=== PATIENT | male | born 1930 | race Caucasian/White ===

== ENCOUNTER 2016-07-25 04:04 | Day surgery (SDC) | payer MEDICARE, OTHER ==
[2016-07-19 13:31] LABS: HEMATOCRIT 38.6 % (40.0-51.0); HEMOGLOBIN 12.5 g/dL (13.6-17.8)
[2016-07-19 13:45] LABS: BUN (BLOOD UREA NITROGEN) 17 MG/DL (6-23); CALCIUM, SERUM 8.7 MG/DL (8.5-10.4); CHLORIDE, SERUM 109 MMOL/L (96-112); CO2 (CARBON DIOXIDE) 27 MMOL/L (24-34); CREATININE 1.59 MG/DL (0.70-1.30); GFR AFRICAN AMERICAN 45 ML/MIN (>=60); GFR NON AFRICAN AMERICAN 39 ML/MIN (>=60); GLUCOSE, SERUM 89 MG/DL (60-99); POTASSIUM, SERUM 4.4 MMOL/L (3.5-5.3); SODIUM, SERUM 144 MMOL/L (135-148)
--- NOTE | ~2016-07-25 | OP ---
Record Of Operation [facility] [address] [place]. [address] NAME: DAKOTA EDGAR : 32 STATUS : [facility]#: [id number] AGE: 86 ADM/REG DATE : 07/25/16 MR#: [id number] REPORT SERV DATE: 07/25/16 DICTATED BY: ARIADNE WHATLEY DATE: 07/25/16 REPORT STATUS : Draft TRANSCRIBED BY: MODL DATE: 07/25/16 DATE OF PROCEDURE: 07/25/2016 PREOPERATIVE DIAGNOSIS: Right cuff tear and impingement, biceps tendonitis, AC pain. POSTOPERATIVE DIAGNOSIS: Right cuff tear and impingement, biceps tendonitis, AC pain. PROCEDURES: Right subacromial decompression, rotator cuff repair, biceps tenodesis, and extensive debridement. SURGEON: Ariadne Whatley M.D. COMPLICATIONS: None. ANESTHESIA: General endotracheal with regional block. INDICATIONS: This 86-year-old male has some dementia and is in relatively poor health. He was in severe pain and was essentially simply just not progressing adequately with nonoperative treatment. Although, this was discussed at length, eventually the family and he decided to proceed with arthroscopic treatment. We discussed the possibility of an arthroplasty, although radiographically his arthritis did not appear to be significant at that time. PROCEDURE IN DETAIL: The patient was induced in supine position. He was taken to the beach- chair position with care maintained to cervical lordosis. A time-out protocol was enforced. Ancef was administered. The posterolateral portal was created for a diagnostic arthroscopy, which revealed full- thickness cartilage loss on the glenoid and a portion of the humerus. There was a full- thickness tear of the supraspinatus, maceration of the biceps as well, type 3 acromion, very tight AC bone spurs. Extensive debridement: A 5.5 cannula was localized with an outside-in spinal technique. The shaver was introduced. The synovitis was resected in the rotator interval. The macerated biceps tendon was resected and allowed to retract. We debrided the superior labral tear superiorly, posteriorly, and inferiorly. Chondroplasty of the humeral head was performed and chondroplasty of the glenoid was performed. The greater tuberosity was debrided down to a bleeding bony surface. Subacromial decompression: The arthroscopic cannula was then removed from the posterior shoulder and redirected in the subacromial space. The metal trocar was inserted and the cannula was advanced out the anterior superior portal creating an outflow portal with outside in technique. A lateral portal was then created after spinal needle localization and a skin incision was made with an 11-blade. A large 5-5 shaver was then introduced into the joint from lateral and its tip was well visualized in the bursa. A bursectomy was performed going from lateral to medial allowing visualization of the rotator cuff and Record Of Operation [address] [address] NAME: DAKOTA EDGAR : 32 STATUS : [facility] [place] PAT#: [id number] AGE: 86 ADM/REG DATE : 07/25/16 MR#: [id number] REPORT SERV DATE: 07/25/16 DICTATED BY: ARIADNE WHATLEY DATE: 07/25/16 REPORT STATUS : Draft TRANSCRIBED BY: JAMEE DATE: 07/25/16 undersurface of the acromion. Coagulation was achieved with a 90-degree electrothermal device and the undersurface of the CA ligament was recessed with the tissue ablator. Bur was then introduced laterally and acromioplasty was performed smoothing the acromion from a type I morphology. This was begun laterally and advanced medially. The AC joint was then checked for spurs and these were smoothed. The soft tissue decompression was carried out anteriorly, laterally and superiorly. The scope was then withdrawn and placed into the lateral portal and the cutting-block technique was used with the instrumentation from posterior to assure that a perfect acromioplasty had been performed. Decompression then underwent the final check by forward flexing the arm again to check for impingement. Attention was then turned to the resection of the AC joint. Looking from posteriorly, the compartment of the AC joint was entered and a laterally placed tissue ablator was utilized to debride fat and coagulate bleeders under the AC joint. A bur was introduced and the undersurface of the AC joint was co-planed from lateral to medial. Palpation on the clavicle allowed visualization of the AC joint and disc. A spinal needle directed from anteriorly allowed localization of the AC joint and a 12-flute bur was introduced anteriorly. This bur was utilized to resect approximately 1 cm on the clavicle from anterior to posterior. 2 mm were then taken off the acromial side. Care was taken to insure that a level cut was made at the anterior and posterior junctions of the AC joint and the anterior and posterior AC ligaments were recessed prior to this with a tissue ablator preserving their structure. The scope was then placed in the lateral portal and again the AC joint was visualized anteriorly and posteriorly with inferiorly directed pressure insuring an adequate superior decompression. The posterior aspect of the joint was then checked with a scope in the anterior portal and an accessory posterior portal was created and utilized to recess the posterior spur with a bur. No [id number] contact at the AC joint was present after resection. Cuff repair: We looked intra and extra-articular as if this was a delta type configuration, but there was plenty of bursal-sided fibers intact. We kept those intact and worked from intra-articular to place two triple and a double loaded anchor. We then used the Expressew to repair the cuff through the rent in the cuff on the bursal space. These were all tied, and we used two SwiveLock low and lateral for a transosseous equivalent technique. The scope was withdrawn. Portals closed with Monocryl, and Steri-Strips were applied. There were no medical complications. The patient tolerated the procedure well, and was taken to PACU in stable condition. POSTOPERATIVE PLAN: Large cuff tear protocol. TAWANDA/JAMEE Ariadne Whatley M.D. / [id number] Record Of Operation [address] [address] NAME: DAKOTA EDGAR : 32 STATUS : [facility] PAT#: [id number] AGE: 86 ADM/REG DATE : 07/25/16 MR#: [id number] REPORT SERV DATE: 07/25/16 DICTATED BY: ARIADNE WHATLEY DATE: 07/25/16 REPORT STATUS : Draft TRANSCRIBED BY: MODL DATE: 07/25/16 CC: Chastity Gonzalez Frances
[~2016-07-25 04:04] MED LIST: ACET500CAP PO; ALBUTEROL0.083 % INH; ASAB PO; BREO ELLIPTA INH; COZ25 PO; GLUCOTRO10 PO; HYDRALAZINE100 MG PO; L20 PO; LOP50 PO; NEUR100 PO; NITROQUICK0.4 MG SL; PRAVACHOL80 MG PO; XARELTO15 MG PO
== END 2016-07-25 13:34 | disposition home or self-care (01) ==
LOC: SDC 04:04
PROVIDERS: Orthopaedic Surgery Sports Medicine
PROC: 0RNJ4ZZ Release Right Shoulder Joint, Percutaneous Endoscopic Approach (ICD-10-PCS; 2016-07-25)
PROC: 0PB94ZZ Excision of Right Clavicle, Percutaneous Endoscopic Approach (ICD-10-PCS; 2016-07-25)
PROC: 0RBJ4ZZ Excision of Right Shoulder Joint, Percutaneous Endoscopic Approach (ICD-10-PCS; 2016-07-25)
PROC: 0LQ14ZZ Repair Right Shoulder Tendon, Percutaneous Endoscopic Approach (ICD-10-PCS; principal; 2016-07-25 05:45)
DX: M75.121 Complete rotator cuff tear or rupture of right shoulder, not specified as traumatic (principal); M75.21 Bicipital tendinitis, right shoulder; M75.41 Impingement syndrome of right shoulder; I13.0 Hypertensive heart and chronic kidney disease with heart failure and stage 1 through stage 4 chronic kidney disease, or unspecified chronic kidney disease; E11.22 Type 2 diabetes mellitus with diabetic chronic kidney disease; N18.9 Chronic kidney disease, unspecified; I50.9 Heart failure, unspecified; I25.10 Atherosclerotic heart disease of native coronary artery without angina pectoris; E78.00 Pure hypercholesterolemia, unspecified; J44.9 Chronic obstructive pulmonary disease, unspecified; G47.33 Obstructive sleep apnea (adult) (pediatric); M19.90 Unspecified osteoarthritis, unspecified site; Z95.0 Presence of cardiac pacemaker; Z95.1 Presence of aortocoronary bypass graft; Z96.1 Presence of intraocular lens; Z98.41 Cataract extraction status, right eye; Z98.42 Cataract extraction status, left eye; Z88.2 Allergy status to sulfonamides; Z88.5 Allergy status to narcotic agent; Z87.891 Personal history of nicotine dependence; Z79.82 Long term (current) use of aspirin; Z79.899 Other long term (current) drug therapy; Z98.890 Other specified postprocedural states
CPT/HCPCS: 73030-RT; 80048; 82962; 85014; 85018; 88304; 93005; 94640; A9270-GY; C1713; J0360; J0690; J2270; J2370; J2405; J2710; J2795; J3010